=== PATIENT | female | born 1980 ===

== ENCOUNTER 2018-04-27 12:30 | Inpatient (IN) | payer OTHER ==
[~2018-04-27] VITALS: Ht 157.5 cm; Wt 71.2 kg
[2018-05-21] MEDS ORDERED: PRENATAL FORMU1 EAC1 PO (08:32)
== END 2018-05-24 19:21 | disposition home or self-care (01) | DRG 788 ==
LOC: OB/GYN 05-19 12:30 → LDR 05-21 06:42 → SURG-SUITE 05-21 06:42
PROVIDERS: Obstetrics & Gynecology; ADMIT Specialist
PROC: 4A1HXCZ Monitoring of Products of Conception, Cardiac Rate, External Approach (ICD-10-PCS; 2018-05-21)
PROC: 3E033VJ Introduction of Other Hormone into Peripheral Vein, Percutaneous Approach (ICD-10-PCS; 2018-05-22)
PROC: 4A033R1 Measurement of Arterial Saturation, Peripheral, Percutaneous Approach (ICD-10-PCS; 2018-05-22)
PROC: 10D00Z1 Extraction of Products of Conception, Low, Open Approach (ICD-10-PCS; principal; 2018-05-22 03:15)
DX: O61.0 Failed medical induction of labor (principal); O76 Abnormality in fetal heart rate and rhythm complicating labor and delivery; O34.13 Maternal care for benign tumor of corpus uteri, third trimester; D25.9 Leiomyoma of uterus, unspecified; Z3A.40 40 weeks gestation of pregnancy; Z37.0 Single live birth

== ENCOUNTER 2022-03-28 12:52 | Day surgery (SDC) | payer OTHER ==
[~2022-03-28] VITALS: Ht 157.5 cm; Wt 60.3 kg
[~2022-03-28 12:52] MED LIST: PRENATAL FORMU1 EAC1 PO
== END 2022-03-28 22:45 | disposition home or self-care (01) ==
LOC: CIR.AMB 12:52
PROVIDERS: ATTEND Specialist
DX: N87.9 Dysplasia of cervix uteri, unspecified (principal); N72 Inflammatory disease of cervix uteri; Z20.822 Contact with and (suspected) exposure to COVID-19

== ENCOUNTER 2023-07-04 10:15 | Inpatient (IN) | payer OTHER ==
[~2023-07-04] VITALS: Ht 157.5 cm; Wt 59.9 kg
[2023-07-10] MEDS ORDERED: CEFAZOLIN SODIUM 1,000 MG VIAL ONE (17:24)
[2023-07-10] MEDS ORDERED: POVIDONE-IODINE 118 ML BOTT TOP ONE ×2 (17:24→18:45)
[2023-07-10] MEDS ORDERED: CEFAZOLIN SODIUM 1,000 MG VIAL IV ONE (18:45)
[2023-07-10] MEDS ORDERED: HEMOSTATIC MATRIX 1 KIT KIT TOP ONE ×2 (19:15)
[2023-07-10] MEDS ORDERED: SUGAMMADEX SODIUM 200 MG/2 ML VIAL IV ONE ×2 (19:41→20:00)
[2023-07-10] MEDS ORDERED: PROMETHAZINE HCL 50 MG/ML AMPUL IV SCH (20:00)
[2023-07-10] MEDS ORDERED: MEPERIDINE HCL/PF 50 MG/ML VIAL IV SCH (20:00)
[2023-07-10] MEDS ORDERED: KETOROLAC TROMETHAMINE 60 MG VIAL IM ONE (20:00)
[2023-07-11 01:43] LABS: HEMATOCRIT 33.5 % (36.0-45.00); MEAN CELL VOLUME 84.8 fL (80.00-100.00); MEAN CORPUSCULAR HGB CONC 33.2 g/dl (32.0-36.0); PLATELET COUNT 257 K/uL (150-450); RED BLOOD COUNT 3.95 M/uL (4.00-6.00); RED CELL DISTRIBUTION WIDTH 14.7 % (11.5-14.5)
[2023-07-11] MEDS ORDERED: MORPHINE SULFATE 4 MG/ML CARTRIDGE IV PRN (01:45)
[2023-07-11 01:47] LABS: HEMOGLOBIN 11.1 g/dL (12.0-15.00); MEAN CORPUSCULAR HEMOGLOBIN 28.1 pg (27.00-32.0)
[2023-07-11] MEDS ORDERED: ENOXAPARIN SODIUM 40 MG/0.4 ML SYRINGE SUBCUTANEO ONE (08:00)
[2023-07-11] MEDS ORDERED: DOCUSATE CALCIUM 240 MG CAPSULE PO SCH (09:00)
[2023-07-11] MEDS ORDERED: CEFOXITIN SODIUM 2,000 MG VIAL IV SCH (09:00)
[2023-07-11] MEDS ORDERED: OxyCODONE HCL/APAP UD (PERCOCET) PO SCH (09:00)
[2023-07-11] MEDS ORDERED: SIMETHICONE 125 MG CAPSULE PO SCH (09:00)
[2023-07-11 11:17] LABS: HEMATOCRIT 36.1 % (36.0-45.00); MEAN CELL VOLUME 84.2 fL (80.00-100.00); MEAN CORPUSCULAR HEMOGLOBIN 27.9 pg (27.00-32.0); MEAN CORPUSCULAR HGB CONC 33.1 g/dl (32.0-36.0); PLATELET COUNT 278 K/uL (150-450); RED BLOOD COUNT 4.29 M/uL (4.00-6.00); RED CELL DISTRIBUTION WIDTH 14.8 % (11.5-14.5)
[2023-07-12] MEDS ORDERED: IBU800 MG PO (11:22)
[2023-07-12] MEDS ORDERED: COLACE100 MG PO (11:23)
[2023-07-12] MEDS ORDERED: SIMETHICONE125 M1 PO (11:23)
== END 2023-07-12 12:14 | disposition home or self-care (01) | DRG 743 ==
LOC: SURH 07-10 07:00 → O/R 07-10 15:07 → OB/GYN 07-10 21:18
PROVIDERS: Obstetrics & Gynecology; ADMIT Specialist; ATTEND Specialist
PROC: 0UT70ZZ Resection of Bilateral Fallopian Tubes, Open Approach (ICD-10-PCS; 2023-07-10)
PROC: 0UT90ZZ Resection of Uterus, Open Approach (ICD-10-PCS; principal; 2023-07-10 07:00)
DX: D25.1 Intramural leiomyoma of uterus (principal); D25.2 Subserosal leiomyoma of uterus; D25.0 Submucous leiomyoma of uterus; N72 Inflammatory disease of cervix uteri; Z20.822 Contact with and (suspected) exposure to COVID-19